=== PATIENT | female | born 1985 | race Caucasian/White ===

== ENCOUNTER 2019-02-14 18:36 | Emergency (ER) | payer MEDICAID ==
[~2019-02-14] VITALS: Ht 157.5 cm; Wt 71.8 kg
[2019-02-14 18:44] VITALS: BP 118/76
--- NOTE | 2019-02-14 18:51 | NUR ---
BIB FRIEND. AAO X4 C/O LOWER ABD PAIN X1 MONTH. INTERMITENT HEAVY/PULSING PAIN AT 8/10 THAT RADIATES TO JO THIGHS X 1 WEEK. PT STATES PAIN GETS HEAVIER AFTER EATING. + NAUSEA, + PAINFUL URINATION, + VAGINAL DISCHARGE. LAST BM TODAY. PT DENIES FEVER, VOMITING, DIARRHEA, SOB. ABDOMEN SOFT, NON TENDER. ER TO EVALUATE PT.
--- NOTE | 2019-02-14 19:14 | NUR ---
Pt report given to PJ MARIEE. Transfer of care at this time.
[2019-02-14 19:15] LABS: BASOPHILS % (AUTO) 0.2 % (0.0-2.0); EOSINOPHILS # (AUTO) 0.2 K/uL (0-0.4); EOSINOPHILS % (AUTO) 1.5 % (0.0-4.0); HEMATOCRIT 31.5 % (36-48); HEMOGLOBIN 10.1 g/dL (12.0-16.0); LYMPHOCYTES # (AUTO) 1.8 K/uL (2.5-16.5); LYMPHOCYTES % (AUTO) 16.5 % (20.5-51.1); MEAN CORPUSCULAR HEMOGLOBIN 23 pg (27-31); MEAN CORPUSCULAR HGB CONC 32 g/dL (33-37); MEAN CORPUSCULAR VOLUME 73.1 fL (80-94); MONOCYTES # (AUTO) 0.7 K/uL (0.8-1.0); MONOCYTES % (AUTO) 6.1 % (1.7-9.3); NEUTROPHILS # (AUTO) 8.1 K/uL (1.8-7.7); NEUTROPHILS % (AUTO) 75.7 % (42.2-75.2); PLATELET COUNT (AUTO) 396 K/uL (140-450); RED BLOOD CELL COUNT(AUTO) 4.32 MIL/uL (4.20-5.40); RED CELL DISTRIBUTION WIDTH 19.7 % (11.6-13.7); WHITE BLOOD COUNT (AUTO) 10.7 K/uL (4.8-10.8)
--- NOTE | 2019-02-14 19:15 | NUR ---
RECEIVED REPORT FROM PJ HILTON. TRANSFER OF CARE AT THIS TIME.
[2019-02-14 19:17] LABS: APPEARANCE,URINE CLEAR (CLEAR); BILIRUBIN,URINE NEGATIVE (NEGATIVE); BLOOD, URINE TRACE-I (NEGATIVE); COLOR,URINE YELLOW (YELLOW); LEUKOCYTE ESTERASE ,URINE NEGATIVE (NEGATIVE); NITRITE, URINE NEGATIVE (NEGATIVE); UGLUCOSE NEGATIVE (NEGATIVE)
[2019-02-14 19:30] LABS: ANION GAP 13.7 (8-16); CARBON DIOXIDE 24.4 mmol/L (21-32); CREATININE 0.8 mg/dL (0.6-1.3); POTASSIUM 4.1 mmol/L (3.5-5.1)
--- NOTE | 2019-02-14 19:30 | NUR ---
PT SITTING COMFORTABLY IN BED AWAKE, A/O X 4 WITH VSS. FRIEND SITTING AT BEDSIDE. SKIN PINK, WARM, DRY. BREATHING EVEN, UNLABORED.
[2019-02-14 19:39] LABS: ALBUMIN 3.8 g/dL (3.4-5.0); TOTAL BILIRUBIN 0.2 mg/dL (0.0-1.0)
[2019-02-14 19:40] LABS: RBC,URINE 0-5 /HPF (0-5); WBC,URINE 0-5 /HPF (0-5)
--- NOTE | 2019-02-14 19:45 | NUR ---
PT ASKING IF SHE CAN LEAVE TO GO SMOKE. EXPLAINED TO PT THAT SHE HAS MULTIPLE PROCEDURES ORDERED AND SHE NEEDS TO STAY IN ROOM. PT STATES UNDERSTANDING.
--- NOTE | 2019-02-14 20:25 | NUR ---
US AT BEDSIDE.
--- NOTE | 2019-02-14 20:45 | NUR ---
PT ASKING AGAIN IF SHE CAN GO OUTSIDE TO SMOKE. EXPLAINED AGAIN THAT DOCTOR WILL BE COMING IN TO PERFORM PELVIC EXAM SOON. PT STATES UNDERSTANDING.
--- NOTE | 2019-02-14 21:38 | NUR ---
Female Theatre Instructor accompanied Dr. Woods for Pelvic Exam.
[2019-02-14] MEDS ORDERED: cefTRIAXone 250 MG in LIDOCAINE MPF 1% - 5 mL VIAL 0.9 ML IM ONE (22:50)
[2019-02-14] MEDS ORDERED: KETOROLAC 15 MG/ML VIAL IM ONE (22:50)
--- NOTE | 2019-02-14 23:00 | NUR ---
MEDICATIONS ADMINISTERED ORDERED. RISKS/BENEFITS REVIEWED. WILL CONTINUE TO MONITOR.
[2019-02-14 23:46] VITALS: BP 117/72
[2019-02-17 06:08] LABS: CHLAMYDIA TRACHOMATIS AMP DNA Negative (Negative)
== END 2019-02-14 23:46 | disposition home or self-care (01) ==
LOC: MED 18:36
DX: A64 Unspecified sexually transmitted disease (principal); N73.9 Female pelvic inflammatory disease, unspecified; D21.9 Benign neoplasm of connective and other soft tissue, unspecified
CPT/HCPCS: 36415; 76856; 80053; 81001; 81025; 83690; 85025; 87210; 93976; 96372; 99284; J0696; J1885; J2001; Q0092; 87491

== ENCOUNTER 2019-04-04 10:13 | Emergency (ER) | payer MEDICAID ==
[~2019-04-04] VITALS: Ht 157.5 cm; Wt 71.3 kg
--- NOTE | 2019-04-04 10:19 | NUR ---
Pt taken to bed 4.
[2019-04-04 10:20] VITALS: BP 101/57
--- NOTE | 2019-04-04 10:26 | NUR ---
BIB SELF W/ C/O RT BACK/RUQ PAIN AND VOMITING THIS MORNING. PER PT HAD GALLSTONE 2 YRS AGO. SKIN IS PINK/WARM/DRY; AAOX4 WITH EVEN AND STEADY GAIT; LUNGS CLEAR BL; HR EVEN AND REGULAR; PT DENIES ANY FEVER, CP, SOB, OR COUGH AT THIS TIME; PATIENT STATES PAIN OF 7/10 AT THIS TIME; VSS; PATIENT POSITIONED FOR COMFORT; HOB ELEVATED; BEDRAILS UP X2; BED DOWN. ER MD MADE AWARE OF PT STATUS.
[2019-04-04] MEDS ORDERED: MORPHINE SULFATE 4 MG/ML SYR IVP ONE (10:30)
[2019-04-04] MEDS ORDERED: ONDANSETRON 4 MG/2 ML VIAL IVP ONE (10:30)
[2019-04-04 11:08] LABS: ALBUMIN 3.7 g/dL (3.4-5.0); CARBON DIOXIDE 24.6 mmol/L (21-32); CREATININE 0.7 mg/dL (0.6-1.3); POTASSIUM 4.6 mmol/L (3.5-5.1); TOTAL BILIRUBIN 0.3 mg/dL (0.0-1.0)
[2019-04-04 12:20] VITALS: BP 111/59
--- NOTE | 2019-04-04 12:20 | NUR ---
Patient discharged with v/s stable. Written and verbal after care instructions given and explained. Patient alert, oriented and verbalized understanding of instructions. Ambulatory with steady gait. All questions addressed prior to discharge. ID band removed. Patient advised to follow up with PMD. Rx of [place] and Ibuprofen given. IV removed, catheter intact and site benign. Applied folded 4x4 gauze and tape to stop bleeding. Patient educated on indication of medication including possible reaction and side effects. Opportunity to ask questions provided and answered.
[2019-04-04 12:31] LABS: APPEARANCE,URINE HAZY (CLEAR); BILIRUBIN,URINE NEGATIVE (NEGATIVE); BLOOD, URINE NEGATIVE (NEGATIVE); COLOR,URINE YELLOW (YELLOW); LEUKOCYTE ESTERASE ,URINE TRACE (NEGATIVE); NITRITE, URINE NEGATIVE (NEGATIVE); UGLUCOSE NEGATIVE (NEGATIVE)
[2019-04-04 12:47] LABS: RBC,URINE 0 /HPF (0-5)
[2019-04-04 13:52] LABS: BASOPHILS % (AUTO) 0.3 % (0.0-2.0); EOSINOPHILS # (AUTO) 0.1 K/uL (0-0.4); EOSINOPHILS % (AUTO) 1.8 % (0.0-4.0); HEMATOCRIT 32.6 % (36-48); HEMOGLOBIN 10.5 g/dL (12.0-16.0); LYMPHOCYTES # (AUTO) 1.7 K/uL (2.5-16.5); MEAN CORPUSCULAR HEMOGLOBIN 25 pg (27-31); MEAN CORPUSCULAR HGB CONC 32 g/dL (33-37); MEAN CORPUSCULAR VOLUME 76.7 fL (80-94); MONOCYTES # (AUTO) 0.4 K/uL (0.8-1.0); NEUTROPHILS # (AUTO) 2.6 K/uL (1.8-7.7); NEUTROPHILS % (AUTO) 54.9 % (42.2-75.2); PLATELET COUNT (AUTO) 345 K/uL (140-450); RED BLOOD CELL COUNT(AUTO) 4.25 MIL/uL (4.20-5.40); RED CELL DISTRIBUTION WIDTH 19.5 % (11.6-13.7); WHITE BLOOD COUNT (AUTO) 4.8 K/uL (4.8-10.8)
== END 2019-04-04 12:20 | disposition home or self-care (01) ==
LOC: MED 10:13
DX: K80.20 Calculus of gallbladder without cholecystitis without obstruction (principal); Z87.19 Personal history of other diseases of the digestive system
CPT/HCPCS: 36415; 76705; 80053; 81001; 81025; 83690; 85025; 87086; 96374; 96375; 99284; J2270; J2405; Q0092